=== PATIENT | male | born 1945 | race Caucasian/White ===

== ENCOUNTER 2017-03-20 16:06 | Outpatient (CLI) | payer MEDICARE ==
[2017-03-20 16:45] LABS: Hemoglobin 14.8 g/dL (14.0-18.0); Mean Corpuscular HGB CONC 33.5 g/dL (32.0-36.0); Mean Corpuscular Volume 95.5 fl (80.0-94.0); Mean Platelet Volume 8.1 fL (7.4-10.4); Platelet Count 228 thou/uL (130-400); RBC Distribution Width 11.9 % (11.5-14.5); Red Blood Cell (RBC) Count 4.64 mill/uL (4.70-6.10); White Blood Cell (WBC) Count 7.2 thou/uL (4.8-10.8)
[2017-03-20 16:46] LABS: PTT 32.9 SEC (22.9-36.1); Prothrombin Time 12.8 SEC (12.0-14.7)
[2017-03-20 17:03] LABS: ALT (SGPT) 23 U/L (8-55); AST (SGOT) 22 U/L (5-34); Albumin 4.5 g/dL (3.4-4.8); Alkaline Phosphatase 54 U/L (40-150); Anion Gap 14 mmol/L (10-20); BUN (Urea Nitrogen) 15 mg/dL (8.4-25.7); Bilirubin, Total 0.5 mg/dL (0.2-1.2); Calc. Creatinine Clearance 0 mL/min (70-130); Calcium 10.1 mg/dL (7.8-10.44); Carbon Dioxide 28 mmol/L (23-31); Chloride 101 mmol/L (98-107); Estimated GFR-MDRD Greater than 90; Globulin 2.6 g/dL (2.4-3.5); Glucose 121 mg/dL (80-115); Protein, Total 7.1 g/dL (5.8-8.1); Sodium 140 mmol/L (136-145)
== END 2017-03-20 16:07 | disposition home or self-care (01) ==
LOC: LABBT 16:06
PROVIDERS: ATTEND Internal Medicine Cardiovascular Disease
DX: Z01.818 Encounter for other preprocedural examination (principal); R06.02 Shortness of breath
CPT/HCPCS: 80053; 85027; 85610; 85730

== ENCOUNTER 2017-03-30 05:59 | Day surgery (SDC) | payer MEDICARE ==
[2017-03-20 16:35] VITALS: BMI 30.9
[2017-03-30] MEDS ORDERED: Diazepam 5 MG TAB ONE (06:41)
[2017-03-30 06:55] LABS: Cardiac Risk 2.6 (Less than 4.5)
[2017-03-30] MEDS ORDERED: Heparin 10,000 UNITS/1 ML VIAL ONE (07:01)
[2017-03-30] MEDS ORDERED: Verapamil 5 MG/2 ML VIAL ONE (07:01)
[2017-03-30] MEDS ORDERED: Nitroglycerin 100MG/250ML BOT 250 ML ONE (07:01)
[2017-03-30] MEDS ORDERED: Fentanyl 100 MCG/2 ML VIAL ONE (07:20)
[2017-03-30] MEDS ORDERED: Midazolam HCl 2 mg/2 ml Vial ONE (07:20)
[2017-03-30] MEDS ORDERED: Iopamidol 370 76% 100 ML VIAL ONE (11:38)
== END 2017-03-30 11:15 | disposition home or self-care (01) ==
LOC: CCL 05:59
PROVIDERS: ATTEND Internal Medicine Cardiovascular Disease
DX: R06.02 Shortness of breath (principal); R42 Dizziness and giddiness; I25.10 Atherosclerotic heart disease of native coronary artery without angina pectoris; I10 Essential (primary) hypertension; Z90.89 Acquired absence of other organs; Z98.890 Other specified postprocedural states
CPT/HCPCS: 80061; 93454; C1769; 36415; 99152; J1644; J2250; J3010

== ENCOUNTER 2018-12-24 07:25 | Outpatient (CLI) | payer MEDICARE ==
[2018-12-24 08:05] LABS: Estimated GFR-MDRD - POC Greater than 90
--- NOTE | 2018-12-24 09:25 | CT ---
CT abdomen with and without contrast CT pelvis with and without contrast: DATE: 12/24/2018 HISTORY: 73-year-old male with bladder cancer status post chemotherapy and surgery. COMPARISON: Noncontrast CT of 28/04/2011 FINDINGS: The previously demonstrated 1.5 cm cyst in the left lobe of liver hepatic segment 4A has grown to 2 c m now. No other focal hepatic lesions. No hepatic metastasis. The previously demonstrated 2.5 x 2 x 3.5 cm exophytic cyst protruding from the lateral aspect of the left renal upper-mid pole has grown to current dimensions of 5 x 5.5 x 5 cm. There is a new round 2.5 x 2.5 x 2.5 cm cyst at the lower pole parenchyma of the right kidney. There is a new tiny 0.5 x 1.5 x 1.5 cm low-density lesion exophytically protruding from the lateral c ortex of left renal lower pole, too small to characterize, probably another cyst. A small 1 cm parenchymal low density lesion at lower pole of left kidney anteriorly, too small to gil racterize, but probably another cyst. Another 1 cm small heterogeneously low attenuation lesion at the lateral aspect of right renal lower pole parenchyma, too small to characterize and indeterminate. Possibly another cyst. 1.5 similar such lesion at posterior aspect of left renal upper pole parenchyma. No hydronephrosis. No retroperitoneal, judy hepatis, mesenteric, or iliac chain lymphadenopathy. Mild irregularity of mucosal surface of the urinary bladder, nonspecific. No obvious moderate sized o r large tumor mass within the urinary bladder. Prominent prostate gland indents the inferior aspect of urinary bladder. Normal abdominal aorta, adrenals, pancreas, and spleen. No colonic diverticulitis. No small bowel dilation. No pleural effusion. No ascites or pneumoperitoneum. No destructive osseous lesion. IMPRESSION: 1.) No convincing evidence of active malignant activity. 2.) Nonspecific mild irregularity of the mucosal lining of the urinary bladder. 3) interval growth of now large left renal cyst, and interval development of multiple new bilateral s mall renal low density lesions, at least the vast majority of which are probably cysts. 4) interval growth of small hepatic cyst.
== END 2018-12-24 07:26 | disposition home or self-care (01) ==
LOC: BICCT 07:25
PROVIDERS: ATTEND Urology
DX: C67.9 Malignant neoplasm of bladder, unspecified (principal); K76.89 Other specified diseases of liver; N28.1 Cyst of kidney, acquired; N28.89 Other specified disorders of kidney and ureter
CPT/HCPCS: 74178; 82565

== ENCOUNTER 2020-01-18 14:31 | Outpatient (CLI) | payer MEDICARE ==
[~2020-01-18 14:31] MED LIST: Iopamidol 370 76% 100 ML VIAL ONE
--- NOTE | 2020-01-18 15:42 | CT ---
Exam: Abdomen CT with and without contrast Pelvic CT with and without contrast HISTORY: Previous bladder cancer. Hematuria. COMPARISON: 12/24/2018 TECHNIQUE: Abdomen and pelvic CT is performed with and without contrast following urogram protocol. C oronal reformatted images are submitted for interpretation FINDINGS: Lung bases: Scarring and atelectasis in the lung bases Heart: Normal heart size. No significant pericardial fluid Aorta: Normal caliber. No periaortic fat stranding Liver: Stable hypodensities in the left hepatic lobe, compatible with hepatic cyst measuring 1.8 x 2. 3 cm. Spleen: Appropriate enhancement Pancreas: Appropriate enhancement Adrenal glands: Symmetric enhancement Lymph nodes: No gastrohepatic, retrocrural or periportal lymphadenopathy Portal vein: Patent Gallbladder: Unremarkable Kidneys: Noncontrast: No evidence of nephrolithiasis or perinephric fat stranding. 5.1 x 5.5 cm left renal cor tical cyst. 2.8 x 2.8 cm right renal cortical cyst. Contrast: Symmetric enhancement of the kidneys. There are multiple renal cortical hypodensities simil ar to the previous examination, compatible with multifocal renal cortical cysts. There is a hypodensity in the midpole the right kidney measuring 0.9 cm which may have a focus of possible enhan cement. There is a cortical defect involving the left renal cortex with a small amount of perinephric fluid, unchanged. Delayed: Symmetric excretion into the intrarenal collecting system. No evidence of obstructive uropat hy. Mesentery: No mass, nephropathy, free air or free fluid Alimentary canal: Limited evaluation due to lack of oral contrast administration. No evidence of raghav l obstruction. The ileocecal junction is normal. Normal caliber appendix. Scattered fecal material in a nondistended/nondilated colon. CT PELVIS: Reproductive organs and pelvis: No evidence of enlarged prostate gland Urinary bladder: There is mild mucosal thickening the urinary bladder. There is air in the nondepende nt portion of the bladder. Correlate for possible recent Arreola catheterization. On the delayed images, there is contrast in the dependent portion of the bladder without evidence of filling defect. No lytic or blastic lesions in the osseous structures IMPRESSION: 1. No evidence of urinary bladder malignancy. Nonspecific irregularity of the bladder mucosa is simil ar to the previous exam. 2. Air in the nondependent portion urinary bladder. Correlate for recent Arreola catheterization 3. Multiple renal and hepatic cysts are redemonstrated. 4. There is a questionable partially enhancing focus in the right renal cortex measuring less than 1 cm. On the delayed images, this lesion appears to be hypodense to the renal cortex. When compared to the previous CT, there does not appear to be any significant change in size. Transcribed Date/Time: 01/18/2020 3:52 PM
== END 2020-01-18 14:32 | disposition home or self-care (01) ==
LOC: BICCT 14:31
PROVIDERS: ATTEND Urology
DX: C67.9 Malignant neoplasm of bladder, unspecified (principal); N28.1 Cyst of kidney, acquired; K76.9 Liver disease, unspecified
CPT/HCPCS: 74178; 82565; Q9967

== ENCOUNTER 2021-04-10 13:41 | Outpatient (CLI) | payer MEDICARE ==
[2021-04-10 15:23] LABS: #Basophils 0.1 10x3/uL (0.0-0.2); #Eosinphils 0.2 10x3/uL (0.0-0.5); #Monocytes 0.6 10x3/uL (0.0-1.1); #Neutrophils 3.3 10x3/uL (1.5-8.4); %Eosinophils 2.6 % (0.0-6.0); %Lymphocytes 33.3 % (18.0-47.0); %Monocytes 9.6 % (0.0-10.0); %Neutrophils 53.3 % (40.0-75.0); Hemoglobin 14.6 g/dL (13.5-17.5); Mean Corpuscular Hemoglobin 31.2 pg (27.0-33.0); Mean Corpuscular Volume 91.9 fl (81.2-95.1); Mean Platelet Volume 10.7 fl (7.4-10.4); Platelet Count 230 10x3/uL (150-450); RBC Distribution Width 12.5 % (11.5-14.5); Red Blood Cell (RBC) Count 4.68 10x6/uL (4.32-5.72); White Blood Cell (WBC) Count 6.2 10x3/uL (3.5-10.5)
[2021-04-10 15:27] LABS: Bilirubin Neg (Negative); Blood, Urine Negative (Negative); Clarity Clear (Clear); Glucose, Urine (Dipstick) Normal (Negative); Ketone, Urine Negative (Negative); Leukocyte Negative (Negative); Nitrite Negative (Negative); Protein, Urine (Dipstick) Negative (Neg-Trace); Specific Gravity, Urine 1.015 (1.002-1.036); Urobilinogen Normal mg/dL (Less than 2); pH, Urine 6.5 (5.0-9.0)
[2021-04-10 15:47] LABS: INR-International Normal Ratio 0.9; Prothrombin Time 10.5 sec (9.5-12.1)
[2021-04-10 15:50] LABS: Anion Gap 14 mmol/L (10-20); BUN (Urea Nitrogen) 13 mg/dL (8.4-25.7); Calc. Creatinine Clearance 0 mL/min (70-130); Calcium 9.7 mg/dL (7.8-10.44); Carbon Dioxide 30 mmol/L (23-31); Chloride 100 mmol/L (98-107); Glucose 117 mg/dL (83-110); Potassium 3.1 mmol/L (3.5-5.1); Sodium 141 mmol/L (136-145)
[2021-04-11 07:37] LABS: SARS-CoV-2 PCR by NAA Not Detected (NotDetected)
== END 2021-04-10 13:42 | disposition home or self-care (01) ==
LOC: LABBT 13:41
PROVIDERS: ATTEND Orthopaedic Surgery
DX: Z01.818 Encounter for other preprocedural examination (principal); M17.12 Unilateral primary osteoarthritis, left knee; Z20.822 Contact with and (suspected) exposure to COVID-19
CPT/HCPCS: 71046; 80048; 81003; 85025; 85610; 86850; 86900; 86901; 87081; 93005; U0003; U0005; 93010

== ENCOUNTER 2021-04-15 06:54 | Observation (INO) | payer OTHER ==
[2021-04-04 14:49] VITALS: BMI 30.6
[2021-04-10 15:23] LABS: #Basophils 0.1 10x3/uL (0.0-0.2); #Eosinphils 0.2 10x3/uL (0.0-0.5); #Monocytes 0.6 10x3/uL (0.0-1.1); #Neutrophils 3.3 10x3/uL (1.5-8.4); %Eosinophils 2.6 % (0.0-6.0); %Lymphocytes 33.3 % (18.0-47.0); %Monocytes 9.6 % (0.0-10.0); %Neutrophils 53.3 % (40.0-75.0); Hemoglobin 14.6 g/dL (13.5-17.5); Mean Corpuscular Hemoglobin 31.2 pg (27.0-33.0); Mean Corpuscular Volume 91.9 fl (81.2-95.1); Mean Platelet Volume 10.7 fl (7.4-10.4); Platelet Count 230 10x3/uL (150-450); RBC Distribution Width 12.5 % (11.5-14.5); Red Blood Cell (RBC) Count 4.68 10x6/uL (4.32-5.72); White Blood Cell (WBC) Count 6.2 10x3/uL (3.5-10.5)
[2021-04-10 15:27] LABS: Bilirubin Neg (Negative); Blood, Urine Negative (Negative); Clarity Clear (Clear); Glucose, Urine (Dipstick) Normal (Negative); Ketone, Urine Negative (Negative); Leukocyte Negative (Negative); Nitrite Negative (Negative); Protein, Urine (Dipstick) Negative (Neg-Trace); Specific Gravity, Urine 1.015 (1.002-1.036); Urobilinogen Normal mg/dL (Less than 2); pH, Urine 6.5 (5.0-9.0)
[2021-04-10 15:47] LABS: INR-International Normal Ratio 0.9; Prothrombin Time 10.5 sec (9.5-12.1)
[2021-04-10 15:50] LABS: Anion Gap 14 mmol/L (10-20); BUN (Urea Nitrogen) 13 mg/dL (8.4-25.7); Calc. Creatinine Clearance 0 mL/min (70-130); Calcium 9.7 mg/dL (7.8-10.44); Carbon Dioxide 30 mmol/L (23-31); Chloride 100 mmol/L (98-107); Glucose 117 mg/dL (83-110); Potassium 3.1 mmol/L (3.5-5.1); Sodium 141 mmol/L (136-145)
[2021-04-11 07:37] LABS: SARS-CoV-2 PCR by NAA Not Detected (NotDetected)
[2021-04-15] MEDS: Ketorolac Tromethamine 30 MG/ML VIAL IVP SCH ×3 (00:50→18:20)
[~2021-04-15 06:54] MED LIST changes: +Bupivacaine HCl 0.5%/Epinephrine 1:200,000/PF 30 ml Vial ONE; +Dexamethasone 20 MG/5 ML VIAL ONE; -Iopamidol 370 76% 100 ML VIAL ONE; +Lidocaine 1% PF 5 ML VIAL ONE; +Ondansetron PF 4 MG/2 ML Vial ONE; +PROPOFOL 200 MG/20 ML VIAL ONE
[2021-04-15] MEDS ORDERED: Vancomycin 1.5 GRAM/300 ML BAG 1.5 GM in Premix Bag 1 BAG IVPB SCH ×2 (07:45→21:00)
[2021-04-15] MEDS ORDERED: Sodium Chloride 0.9% 100 ML ONE (07:45)
[2021-04-15] MEDS ORDERED: Tranexamic Acid 1,000 MG/10 ML VIAL ONE ×2 (07:45→12:14)
[2021-04-15] MEDS ORDERED: Midazolam HCl 2 mg/2 ml Vial ONE (07:47)
[2021-04-15] MEDS ORDERED: Fentanyl 100 MCG/2 ML VIAL ONE ×3 (07:47→12:13)
[2021-04-15] MEDS ORDERED: Fentanyl 100 MCG/2 ML VIAL IV PRN (08:20)
[2021-04-15] MEDS ORDERED: ceFAZolin 2 GM/Dextrose 50 ML IVPB ONE (08:24)
[2021-04-15] MEDS ORDERED: traMADol HCl 50 MG TAB PO PRN ×2 (08:30)
[2021-04-15] MEDS ORDERED: Zolpidem Tartrate 5 MG TAB PO PRN ×2 (08:30→10:19)
[2021-04-15] MEDS ORDERED: Ropivacaine 0.2% 550 ML 550 ML NERVE BLCK SCH (08:30)
[2021-04-15] MEDS ORDERED: Promethazine HCl 25 MG/ML VIAL IM PRN ×3 (08:30→12:07)
[2021-04-15] MEDS ORDERED: Ondansetron PF 4 MG/2 ML Vial IVP PRN ×2 (08:30→10:19)
[2021-04-15] MEDS ORDERED: Bupivacaine PF 0.5% 30 ML VIAL ONE (09:35)
[2021-04-15] MEDS ORDERED: diphenhydrAMINE 25 MG CAP PO PRN (10:19)
[2021-04-15] MEDS ORDERED: Acetaminophen 325 MG TAB PO PRN (10:19)
[2021-04-15] MEDS ORDERED: Tranexamic Acid 1,000 MG in Sodium Chloride 0.9% 100 ML IVPB SCH (10:30)
[2021-04-15] MEDS ORDERED: Promethazine HCl 25 MG/ML VIAL IVPB PRN (12:07)
[2021-04-15] MEDS ORDERED: Ondansetron HCl/PF 4 MG/2 ML Vial IVP PRN (12:07)
[2021-04-15] MEDS: Sodium Chloride 0.9% 1,000 ML IV SCH ×2 (14:51→23:54)
[2021-04-15] MEDS: HYDROcodone/Acetaminophen 10/325 mg Tablet PO PRN ×2 (14:51→21:21)
[2021-04-15] MEDS: ceFAZolin 2 GM/Dextrose 50 ML 2 GM in Premix Bag 1 BAG IVPB SCH ×2 (18:20→23:46)
[2021-04-15] MEDS: Ferrous Gluconate 324 MG TAB PO SCH (21:00)
[2021-04-15] MEDS: Senokot S 8.6-50 MG TAB PO SCH (21:20)
[2021-04-15] MEDS: Aspirin 81 mg Enteric Coated Tablet PO SCH (21:20)
[2021-04-15] MEDS: Potassium Chloride 20 MEQ TAB PO SCH (21:21)
[2021-04-16] MEDS: Ketorolac Tromethamine 30 MG/ML VIAL IVP SCH ×4 (05:28→23:19)
[2021-04-16 05:54] LABS: Hemoglobin 12.1 g/dL (14.0-18.0); Mean Corpuscular HGB CONC 33.5 g/dL (32.0-36.0); Mean Corpuscular Hemoglobin 31.9 pg (27.0-31.0); Mean Corpuscular Volume 95.3 fL (78.0-98.0); Mean Platelet Volume 7.5 fL (7.4-10.4); Platelet Count 195 thou/uL (130-400); RBC Distribution Width 11.7 % (11.5-14.5); Red Blood Cell (RBC) Count 3.78 mill/uL (4.70-6.10); White Blood Cell (WBC) Count 12.1 thou/uL (4.8-10.8)
[2021-04-16] MEDS: Sodium Chloride 0.9% 1,000 ML IV SCH ×2 (06:29→14:55)
[2021-04-16] MEDS: Senokot S 8.6-50 MG TAB PO SCH ×2 (08:47→20:59)
[2021-04-16] MEDS: Potassium Chloride 20 MEQ TAB PO SCH ×2 (08:47→20:59)
[2021-04-16] MEDS: Aspirin 81 mg Enteric Coated Tablet PO SCH ×2 (08:47→20:59)
[2021-04-16] MEDS: Hydrochlorothiazide 25 MG TAB PO SCH (08:47)
[2021-04-16] MEDS: Multivitamin W/ Minerals 1 TAB PO SCH (08:47)
[2021-04-16] MEDS: Cholecalciferol 1,000 UNITS (25 MCG) TAB PO SCH (08:48)
[2021-04-16] MEDS: Allopurinol 100 MG TAB PO SCH (08:48)
[2021-04-16] MEDS: Amlodipine 5 MG TAB PO SCH (08:48)
[2021-04-16] MEDS: Loratadine 10 MG TAB PO SCH (08:48)
[2021-04-16] MEDS: Losartan 25 MG TAB PO SCH (08:48)
[2021-04-16] MEDS: Ferrous Gluconate 324 MG TAB PO SCH ×2 (08:48→20:59)
[2021-04-16] MEDS: HYDROcodone/Acetaminophen 10/325 mg Tablet PO PRN ×3 (11:11→20:59)
[2021-04-16] MEDS ORDERED: Rosuvastatin 5 MG TAB PO SCH (21:00)
[2021-04-17] MEDS: Ketorolac Tromethamine 30 MG/ML VIAL IVP SCH (05:15)
[2021-04-17] MEDS: HYDROcodone/Acetaminophen 10/325 mg Tablet PO PRN ×2 (05:15→09:43)
[2021-04-17] MEDS: Sodium Chloride 0.9% 1,000 ML IV SCH ×2 (06:15→19:14)
[2021-04-17 06:22] LABS: Hemoglobin 11.8 g/dL (14.0-18.0); Mean Corpuscular HGB CONC 33.9 g/dL (32.0-36.0); Mean Corpuscular Hemoglobin 32.3 pg (27.0-31.0); Mean Corpuscular Volume 95.4 fL (78.0-98.0); Mean Platelet Volume 7.8 fL (7.4-10.4); Platelet Count 170 thou/uL (130-400); RBC Distribution Width 11.8 % (11.5-14.5); Red Blood Cell (RBC) Count 3.65 mill/uL (4.70-6.10); White Blood Cell (WBC) Count 10.5 thou/uL (4.8-10.8)
[2021-04-17] MEDS: Losartan 25 MG TAB PO SCH (09:45)
[2021-04-17] MEDS: Senokot S 8.6-50 MG TAB PO SCH (09:45)
[2021-04-17] MEDS: Potassium Chloride 20 MEQ TAB PO SCH (09:45)
[2021-04-17] MEDS: Allopurinol 100 MG TAB PO SCH (09:46)
[2021-04-17] MEDS: Hydrochlorothiazide 25 MG TAB PO SCH (09:46)
[2021-04-17] MEDS: Aspirin 81 mg Enteric Coated Tablet PO SCH (09:47)
[2021-04-17] MEDS: Cholecalciferol 1,000 UNITS (25 MCG) TAB PO SCH (09:47)
[2021-04-17] MEDS: Multivitamin W/ Minerals 1 TAB PO SCH (09:47)
[2021-04-17] MEDS: Ferrous Gluconate 324 MG TAB PO SCH (09:47)
[2021-04-17] MEDS: Amlodipine 5 MG TAB PO SCH (09:47)
[2021-04-17] MEDS: Loratadine 10 MG TAB PO SCH (09:48)
[2021-04-17 11:58] VITALS: BP 165/80; TEMP 99.7
== END 2021-04-17 12:34 | disposition home or self-care (01) ==
LOC: SDC 06:54 → SJJU 13:27
PROVIDERS: ADMIT Orthopaedic Surgery; ATTEND Orthopaedic Surgery
PROC: 3E0T3BZ Introduction of Anesthetic Agent into Peripheral Nerves and Plexi, Percutaneous Approach (ICD-10-PCS; principal; 2021-04-15)
PROC: 0SRD0J9 Replacement of Left Knee Joint with Synthetic Substitute, Cemented, Open Approach (ICD-10-PCS; 2021-04-15)
PROC: 8E0YXBZ Computer Assisted Procedure of Lower Extremity (ICD-10-PCS; 2021-04-15)
DX: M17.12 Unilateral primary osteoarthritis, left knee (principal); I10 Essential (primary) hypertension; E78.5 Hyperlipidemia, unspecified; G89.29 Other chronic pain; M54.9 Dorsalgia, unspecified; Z87.891 Personal history of nicotine dependence; Z79.899 Other long term (current) drug therapy; Z96.651 Presence of right artificial knee joint; Z20.822 Contact with and (suspected) exposure to COVID-19
CPT/HCPCS: 36415; 80048; 81003; 85025; 85027; 85610; 86850; 86900; 86901; 87081; 96365; 96366; 96375; 96376; A4306; C1713; C1776; G0378; J0690; J1100; J1885; J2250; J2405; J2704; J2795; J3010; J3370; J3490; J7050; S0020; U0003; U0005

== ENCOUNTER 2024-03-21 13:16 | Outpatient (CLI) | payer MEDICARE | END 2024-03-21 13:17 | disposition home or self-care (01) | LOC: BICRAD 13:16 | PROVIDERS: ATTEND Specialist | DX: M54.50 Low back pain, unspecified (principal); M47.816 Spondylosis without myelopathy or radiculopathy, lumbar region | CPT/HCPCS: 72100 ==

== ENCOUNTER 2024-10-05 08:38 | Outpatient (CLI) | payer MEDICARE | END 2024-10-05 08:39 | disposition home or self-care (01) | LOC: RAD 08:38 | PROVIDERS: ATTEND Internal Medicine | DX: R06.00 Dyspnea, unspecified (principal) | CPT/HCPCS: 71046 ==

== ENCOUNTER 2024-11-14 08:03 | Outpatient (CLI) | payer MEDICARE | END 2024-11-14 08:04 | disposition home or self-care (01) | LOC: BICCT 08:03 | PROVIDERS: ATTEND Internal Medicine | DX: J44.9 Chronic obstructive pulmonary disease, unspecified (principal); R06.09 Other forms of dyspnea; J98.11 Atelectasis; R91.1 Solitary pulmonary nodule | CPT/HCPCS: 71250 ==